=== PATIENT | female | born 2005 | race Caucasian/White ===

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

== ENCOUNTER 2024-07-29 13:47 | Outpatient (CLI) | payer OTHER, SELFPAY ==
--- NOTE | 2024-07-29 13:45 | CRLHL7_ITS ---
For Patients: As a result of the Century Cures Act, medical imaging exams and procedure reports are released immediately into your electronic medical record. You may view this report before your referring provider. If you have questions, please contact your health care provider. CLINICAL HISTORY: check for IUD location. recent spotting TECHNIQUE: 2D adamson scale and color Doppler images were acquired of the pelvis using a transvaginal approach. FINDINGS: On transvaginal imaging, the myometrium has a normal uniform echotexture. The uterus measures 6.7 x 3.2 x 4.2 cm. The endometrial lining appears normal and measures 4 mm in thickness. IUD is present in the mid uterus. The left ovary measures 3.8 x 3.2 x 2.4 cm in size and the right ovary measures 4.6 x 2.5 x 2.9 cm. The ovaries demonstrate normal arterial and venous blood flow on color Doppler analysis. There are no suspicious fluid collections within the cul-de-sac. Left ovarian volume 15 cc. Right ovarian volume is 17.2 cc. Multiple ovarian follicles are present bilaterally. IMPRESSION: IUD is present within the mid endometrial canal. Endometrial thickness 4 millimeters. Multiple bilateral ovarian follicles with mild prominence of the ovarian volumes which could suggest PCOS in the appropriate clinical setting. Dictated by Petar Holguin MD @ 07/30/2024 7:57:05 AM (Electronically Signed)
--- OUTSIDE RECORDS SUMMARY | 2024-07-29 13:49 | XMS_ITS | Clinical Summary ---
Author Organization [facility] Address [facility] [address] [place] [address]. [address] [place] [address] Care Team Providers Care Account Advisor Name Role Phone Patient, No Pcp Per MD Primary Care Provider Jana vailable Immunizations Name Administration Dates Next Due COVID-19, mRNA, LNP-S, 30 mc g/0.3 mL (PFIZER) (PURPLE CAP) (12 YRS & OLDER) 03/15/2021,02/22/2021 Social History Tobacco Use Types Packs/Day Years Used Date Smoking Tobacco: Never Assessed Sex and Gender Information Value Date Recorded Sex Assigned at Not on file Gender Identity Not on file Sexual Orientation Not on file Plan of Treatment Health Maintenance Due Date Last Done Comments HIV SCREENING 2017 HPV VACCINE (1 - 3-dose series) 2019 DTAP/TDAP/TD (1 - Tdap) 2023 INFLUENZA 06/09/2024 Covid-19 Vaccine (3 - 2022-2 4 season) 2024 03/15/2021, 02/22/2021 Pneumococcal Vaccine 0-64 Aged Out No longer eligible based on patient's age to complete this topic Care Teams Account Advisor Relationship Specialty Start Date End Date Patient, No Pcp PerMD PCP - General 02/22/21
== END 2024-07-29 13:48 | disposition home or self-care (01) ==
LOC: US 13:47
PROVIDERS: Visit Provider Registered Nurse
DX: R10.2 Pelvic and perineal pain (principal); R93.89 Abnormal findings on diagnostic imaging of other specified body structures; N83.02 Follicular cyst of left ovary; N83.01 Follicular cyst of right ovary
CPT/HCPCS: 76830; 76856; 81513; 87481; 87491; 87591; 87661

== ENCOUNTER 2025-01-26 15:51 | Outpatient (CLI) | payer OTHER, SELFPAY | END 2025-01-26 15:52 | disposition home or self-care (01) | LOC: NFLDREF 15:51 | PROVIDERS: Visit Provider Obstetrics & Gynecology | DX: E28.2 Polycystic ovarian syndrome (principal); E88.819 Insulin resistance, unspecified; R73.03 Prediabetes | CPT/HCPCS: 83498 ==